=== PATIENT | female | born 1995 | race Caucasian/White ===

== ENCOUNTER 2018-02-08 12:40 | Emergency (ER) | payer SELFPAY ==
[2018-02-08] MEDS ORDERED: Adacel (T-DAP) 0.5 ML VIAL ONE (13:19)
[2018-02-08] MEDS ORDERED: Bacitracin Zinc 1 Packet ONE (13:19)
== END 2018-02-08 14:55 | disposition home or self-care (01) ==
LOC: ERS 12:40
DX: T24.202A Burn of second degree of unspecified site of left lower limb, except ankle and foot, initial encounter (principal); F17.210 Nicotine dependence, cigarettes, uncomplicated; X17.XXXA Contact with hot engines, machinery and tools, initial encounter
CPT/HCPCS: 16020; 90471; 90715